=== PATIENT | male | born 1990 | race Two or more races ===

== ENCOUNTER 2024-12-02 09:54 | Emergency (ER) | payer OTHER ==
[~2024-12-02] VITALS: Ht 175.3 cm; Wt 85.7 kg
[2024-12-02] MEDS ORDERED: cloNIDine HCL 0.2 MG TABLET PO ONE (10:15)
[2024-12-02] MEDS ORDERED: CLONIDINE HCL 0.1 MG TABLET PO ONE (10:22)
== END 2024-12-02 13:09 | disposition home or self-care (01) ==
LOC: ER 09:54
DX: I10 Essential (primary) hypertension (principal); M25.512 Pain in left shoulder